=== PATIENT | male | born 1960 | race Hispanic/Latino ===

== ENCOUNTER 2017-08-23 20:00 | Emergency (ER) | payer OTHER ==
[~2017-08-23] VITALS: Ht 160 cm; Wt 87.1 kg
[2017-08-23] MEDS ORDERED: CYCLOBENZAPRINE HCL 10 MG TAB PO ONE (20:15)
[2017-08-23] MEDS ORDERED: KETOROLAC TROMETHAMINE 60 MG/2 ML VIAL IM ONE (20:15)
[2017-08-23] MEDS ORDERED: HYDROCODONE/APAP 10MG-325MG TAB PO ONE (20:15)
== END 2017-08-23 21:13 | disposition home or self-care (01) ==
LOC: ER 20:00
DX: S76.802A Unspecified injury of other specified muscles, fascia and tendons at thigh level, left thigh, initial encounter (principal); Y93.89 Activity, other specified; Y92.69 Other specified industrial and construction area as the place of occurrence of the external cause; X50.9XXA Other and unspecified overexertion or strenuous movements or postures, initial encounter
CPT/HCPCS: 99283; J1885

== ENCOUNTER 2021-06-22 18:34 | Emergency (ER) | payer OTHER ==
[~2021-06-22] VITALS: Ht 160 cm; Wt 87.1 kg
[2021-06-22] MEDS ORDERED: TRAMADOL HCL 50 MG TAB PO STA (19:02)
[2021-06-22 20:49] LABS: CLARITY,URINE CLEAR (CLEAR); COLOR,URINE YELLOW (YELLOW); KETONES,URINE NEGATIVE (NEGATIVE); LEUKOCYTE ESTERASE ,URINE NEGATIVE (NEGATIVE); NITRITE,URINE NEGATIVE (NEGATIVE); PROTEIN,URINE DIPSTICK NEGATIVE (NEGATIVE); URINE UROBILINOGEN 0.2 mg/dL (0.2 - 1)
[2021-06-22] MEDS ORDERED: ULTRAM 50MG50 MG PO (22:00)
[2021-06-22 22:20] VITALS: BP 148/81
== END 2021-06-22 22:20 | disposition home or self-care (01) ==
LOC: ER 18:53
DX: M54.31 Sciatica, right side (principal); Z98.890 Other specified postprocedural states
CPT/HCPCS: 72100; 81001; 99283